=== PATIENT | male | born 1955 | race African-American/Black ===

== ENCOUNTER 2016-10-09 14:48 | Emergency (ER) | payer OTHER ==
--- NOTE | ~2016-10-09 | CR181 ---
[facility] A Service of [facility] & [facility] RADIOLOGY TEXT RESULTS PATIENT: MICKY ALMANZA LOCATION: CFTX : 55 UNIT #: [id number] AGE: [address]: Tavia Doss APRN SEX: M ORDER DR: [id number] [facility] [address] [place], [place] [address] [id number] E MR#: [id number] Acc #: [id number] NAME: MICKY ALMANZA : 1955 SEX: M STUDY DATE/TIME: 10/09/2016 16:54 UNIT: [facility] ROOM: STUDY DESCRIPTION: CR Lumbar Spine 2 or 3 Views Attending Physician: Tavia Doss A.P.R.N. Ordering Physician: [facility] Primary Care Physician: No Primary Care Physician MEDICAL IMAGING REPORT This report is preliminary unless electronic signature is present EXAM Lumbar spine 10/09/2016 INDICATIONS Low back pain. FINDINGS 3 views of the lumbar spine without comparison. There is mild dextroscoliosis of the lumbar spine with apex at L3. There is multilevel degenerative change throughout the lumbar spine with moderate to severe disc space narrowing at L3-4 through L5-S1. There is heterogeneous density throughout the lumbar spine. This is concerning for possible osseous metastatic disease. IMPRESSION 1. Moderate multilevel degenerative changes throughout the lumbar spine. 2. No acute traumatic findings. 3. Heterogeneous sclerosis associated with the lumbar spine. This is nonspecific, however is concerning for possible metastatic disease. Dictated by... Augustus Cohen M.D. THIS IS AN ELECTRONICALLY VERIFIED REPORT Augustus Cohen M.D. at 10/09/2016 6:27 PM JILLIAN/rama TD: 10/09/2016 18:14 JOB #: [id number] MEDICAL IMAGING REPORT Page 1 of 1 COPY
== END 2016-10-09 18:31 | disposition home or self-care (01) ==
LOC: CFTX 14:48 → CED 14:48 → CFTX 15:41
DX: M54.5 Low back pain (principal); R93.7 Abnormal findings on diagnostic imaging of other parts of musculoskeletal system; I10 Essential (primary) hypertension; F17.210 Nicotine dependence, cigarettes, uncomplicated
CPT/HCPCS: 72100; 96372; 99283; J1885